=== PATIENT | female | born 1950 | race Caucasian/White ===

== ENCOUNTER → 2016-09-07 | Outpatient (CLI) | payer OTHER ==
[~2016-09-07] MED LIST: ADVAIR 100/501 E1 INH; AVELOX400 MG PO; FLEXERIL10 MG PO; IBUPROFEN600 MG PO; NAPROXEN500 MG PO; SPIRIVA18 MCG IH
--- NOTE | ~2016-09-07 | ST ---
[place], [place] EXERCISE STRESS TEST REPORT NAME[id number] UNIT #: [id number] ROOM: DOCTOR: INDIA CRAWFORD DO BIRTHDATE: [birth year] DOS: 09/07/2016 INDICATION FOR STRESS TEST: Shortness of breath. The patient was given 0.4 mg of IV Lexiscan over 10 seconds followed by the nuclear injection at 40 seconds followed by 2 minutes of recovery. The patient's baseline heart rate was 74, blood pressure is 124/76. Heart rate at 2 minutes was 124, blood pressure at 2 minutes was 130/60. EKG response, paced rhythm was normal sinus rhythm at 2 minutes, it was tachycardic with no ST changes. CLINICAL RESPONSE: The patient had stomach burning. The procedure was terminated due to completion of the stress test. INTERPRETATION: Normal stress test. INDIA CRAWFORD DO RACHNA BRADSHAW MD CM:STRESS:EXERCISE STRESS TEST REPORT [id number] INDIA CRAWFORD DO
--- NOTE | ~2016-09-07 | ST ---
[place], [place] EXERCISE STRESS TEST REPORT NAME: SHAWANDA GARZA UNIT #: [id number] ROOM: DOCTOR: RACHNA BRADSHAW MD BIRTHDATE: [birth year] DOS: 09/07/2016 ADDENDUM Stress test note dictated by Rojelio Cadena on the patient, I agree with the note. RACHNA BRADSHAW MD CM:STRESS:EXERCISE STRESS TEST REPORT [id number] RACHNA BRADSHAW MD
== END | disposition home or self-care (01) ==
LOC: CARD 02:13
DX: R06.02 Shortness of breath (principal); R53.81 Other malaise